=== PATIENT | male | born 1990 | race Two or more races ===

== ENCOUNTER 2022-01-15 22:57 | Emergency (ER) | payer MEDICAID ==
[~2022-01-15] VITALS: Ht 177.8 cm; Wt 74.8 kg
[2022-01-15 22:57] VITALS: BP 103/61
[2022-01-16 01:04] LABS: BUN/Creatinine Ratio 13.2; Bilirubin, Total 1.1 mg/dL (0.2-1.0); Calcium 8.8 mg/dL (8.5-10.1); Potassium 4.1 mmol/L (3.5-5.1); Total Protein 7.9 g/dL (6.4-8.2)
[2022-01-16 01:05] LABS: Albumin 4.4 g/dL (3.4-5.0)
[2022-01-16 01:13] LABS: Basophils # (auto) 0 10 ^3/uL (0-0.2); Eosinophils # (auto) 0 10 ^3/uL (0-0.8); Hematocrit 44.4 % (41.0-53.0); Hemoglobin 15.5 g/dL (13.5-17.5); Lymphocytes # (auto) 0.6 10 ^3/uL (0.4-5.4); Lymphocytes % (auto) 5.2 % (10.0-50.0); Mean Corpuscular Hemoglobin 30.3 pg (28.0-32.0); Mean Corpuscular Hgb Conc. 34.8 g/dL (32.0-36.0); Mean Corpuscular Volume 87.1 fL (80.0-100.0); Monocytes # (auto) 1.1 10 ^3/uL (0-1.3); Neutrophils # (auto) 10.3 10 ^3/uL (1.6-8.6); Neutrophils % (auto) 85.8 % (37.0-80.0); Red Cell Distribution Width 13.7 % (11.8-14.3)
== END 2022-01-16 06:10 | disposition left against medical advice (07) ==
LOC: ER 22:57
DX: R50.9 Fever, unspecified (principal); M79.10 Myalgia, unspecified site; R11.0 Nausea; R19.7 Diarrhea, unspecified; R10.31 Right lower quadrant pain; Z53.21 Procedure and treatment not carried out due to patient leaving prior to being seen by health care provider
CPT/HCPCS: 36415; 80053; 83690; 85025

== ENCOUNTER 2022-01-17 09:32 | Inpatient (IN) | payer MEDICAID ==
[~2022-01-17] VITALS: Ht 177.8 cm; Wt 79.2 kg
[2022-01-17 10:50] LABS: Urine Bacteria NONE SEEN /hpf (None Seen); Urine Blood 1+ /uL (Negative); Urine Hyaline Cast FEW /lpf (0 - 2); Urine Mucus FEW (None Seen); Urine Specific Gravity 1.018 (1.001-1.035); Urine WBC 30 /hpf (0 - 3)
[2022-01-17 12:20] LABS: Hematocrit 45.3 % (41.0-53.0); Hemoglobin 15.9 g/dL (13.5-17.5); Mean Corpuscular Hemoglobin 30.3 pg (28.0-32.0); Mean Corpuscular Hgb Conc. 35.2 g/dL (32.0-36.0); Mean Corpuscular Volume 86.1 fL (80.0-100.0); Red Blood Cells 5.27 10^6/uL (4.5-5.90); Red Cell Distribution Width 14.1 % (11.8-14.3); White Blood Cell 8.8 10^3/uL (4.4-10.8)
[2022-01-17 12:29] LABS: Basophils % (manual) 0 (0.0-2.0); Blast Cells 0; Monocytes % (manual) 0 (0-12); Myelocytes % 0; Promyelocytes % 0; Reactive Lymphocytes 0
[2022-01-17 12:33] LABS: Albumin 3.6 g/dL (3.4-5.0); Calcium 8.6 mg/dL (8.5-10.1); Potassium 4.6 mmol/L (3.5-5.1)
[2022-01-17 12:38] LABS: Bilirubin, Total 0.6 mg/dL (0.2-1.0); Total Protein 7.8 g/dL (6.4-8.2)
[2022-01-17 13:47] LABS: Band Neutrophils % (manual) 13; Eosinophils % (manual) 1 (0-7); Lymphocytes % (manual) 12 (10.0-50.0); Metamyelocytes % 6
[2022-01-17] MEDS ORDERED: metroNIDAZOLE 500MG/100ML 100 ML IV ONE (14:45)
[2022-01-17] MEDS ORDERED: SODIUM CHLORIDE 0.9% 1,000 ML IV ONE (14:45)
[2022-01-17] MEDS ORDERED: CIPROFLOXACIN 400MG/200ML 200 ML IV ONE (14:45)
[2022-01-17] MEDS ORDERED: HYDROcodone-ACET 5/325MG TAB PO PRN (21:15)
[2022-01-17] MEDS ORDERED: ACETAMINOPHEN 325 MG TAB PO PRN (21:15)
[2022-01-17] MEDS ORDERED: PANTOPRAZOLE 40 MG/10 ML VIAL INJ IV ONE (21:15)
[2022-01-17] MEDS ORDERED: ONDANSETRON HCL 4 MG/2 ML VIAL IV PRN (21:15)
[2022-01-17] MEDS ORDERED: TEMAZEPAM 15 MG CAP PO PRN (21:15)
[2022-01-17] MEDS: metroNIDAZOLE 500MG/100ML 100 ML IV SCH (22:00)
[2022-01-17] MEDS: SODIUM CHLORIDE 0.9% 1,000 ML IV SCH (22:51)
[2022-01-17 23:47] VITALS: BP 104/57
[2022-01-18 04:29] LABS: Basophils # (auto) 0 10 ^3/uL (0-0.2); Basophils % (auto) 0.3 % (0.0-2.0); Eosinophils # (auto) 0.1 10 ^3/uL (0-0.8); Eosinophils % (auto) 0.7 % (0.0-7.0); Hematocrit 38.2 % (41.0-53.0); Hemoglobin 13.5 g/dL (13.5-17.5); Lymphocytes # (auto) 1.2 10 ^3/uL (0.4-5.4); Lymphocytes % (auto) 12.9 % (10.0-50.0); Mean Corpuscular Hemoglobin 30.2 pg (28.0-32.0); Mean Corpuscular Hgb Conc. 35.3 g/dL (32.0-36.0); Mean Corpuscular Volume 85.6 fL (80.0-100.0); Monocytes # (auto) 1.3 10 ^3/uL (0-1.3); Monocytes % (auto) 13.8 % (0.0-12.0); Neutrophils # (auto) 6.9 10 ^3/uL (1.6-8.6); Neutrophils % (auto) 72.3 % (37.0-80.0); Nucleated Red Blood Cells % 0.1 %; Red Blood Cells 4.47 10^6/uL (4.5-5.90); Red Cell Distribution Width 14.1 % (11.8-14.3); White Blood Cell 9.5 10^3/uL (4.4-10.8)
[2022-01-18 04:35] LABS: Potassium 3.9 mmol/L (3.5-5.1)
[2022-01-18 04:39] LABS: Albumin 3.1 g/dL (3.4-5.0); BUN/Creatinine Ratio 16.3; Calcium 7.8 mg/dL (8.5-10.1)
[2022-01-18 04:41] LABS: Bilirubin, Total 0.4 mg/dL (0.2-1.0); Total Protein 6.3 g/dL (6.4-8.2)
[2022-01-18 05:00] VITALS: BP 102/60
[2022-01-18] MEDS: metroNIDAZOLE 500MG/100ML 100 ML IV SCH ×3 (05:14→21:45)
[2022-01-18] MEDS: SODIUM CHLORIDE 0.9% 1,000 ML IV SCH ×4 (06:48→22:48)
[2022-01-18 09:00] VITALS: BP 99/62
[2022-01-18] MEDS: cefTRIAXone 1GM/50ML D5W 50 ML IV SCH (09:12)
[2022-01-18] MEDS: PANTOPRAZOLE 40 MG/10 ML VIAL INJ IV SCH (09:12)
[2022-01-18] MEDS ORDERED: methylPREDNISolone SOD SUCC 125 MG/2 ML VL IV ONE (12:00)
[2022-01-18 13:00] VITALS: BP 104/57
[2022-01-18 17:00] VITALS: BP 104/59
[2022-01-18 22:01] VITALS: BP 96/50
[2022-01-19 05:00] VITALS: BP 90/50
[2022-01-19] MEDS ORDERED: SODIUM CHLORIDE 0.9% 500 ML IV ONE (05:45)
[2022-01-19] MEDS: metroNIDAZOLE 500MG/100ML 100 ML IV SCH ×3 (06:03→21:27)
[2022-01-19 07:55] LABS: BUN/Creatinine Ratio 26.9; Calcium 8.1 mg/dL (8.5-10.1); Potassium 4.3 mmol/L (3.5-5.1)
[2022-01-19 08:53] LABS: Basophils # (auto) 0.1 10 ^3/uL (0-0.2); Basophils % (auto) 1.2 % (0.0-2.0); Eosinophils # (auto) 0 10 ^3/uL (0-0.8); Hematocrit 33.5 % (41.0-53.0); Hemoglobin 11.8 g/dL (13.5-17.5); Lymphocytes # (auto) 0.9 10 ^3/uL (0.4-5.4); Lymphocytes % (auto) 9.7 % (10.0-50.0); Mean Corpuscular Hemoglobin 30.5 pg (28.0-32.0); Mean Corpuscular Hgb Conc. 35.4 g/dL (32.0-36.0); Mean Corpuscular Volume 86.1 fL (80.0-100.0); Monocytes # (auto) 0.7 10 ^3/uL (0-1.3); Monocytes % (auto) 7.4 % (0.0-12.0); Neutrophils # (auto) 7.4 10 ^3/uL (1.6-8.6); Neutrophils % (auto) 81.7 % (37.0-80.0); Nucleated Red Blood Cells % 0.1 %; Red Blood Cells 3.88 10^6/uL (4.5-5.90); White Blood Cell 9.1 10^3/uL (4.4-10.8)
[2022-01-19 09:00] VITALS: BP 94/46
[2022-01-19 09:17] LABS: INR 1.01 (0.9-1.15); Partial Thromboplastin Time 32.8 sec (23.6-33.0)
[2022-01-19] MEDS: cefTRIAXone 1GM/50ML D5W 50 ML IV SCH (10:10)
[2022-01-19] MEDS: PANTOPRAZOLE 40 MG/10 ML VIAL INJ IV SCH (10:10)
[2022-01-19] MEDS: methylPREDNISolone SOD SUCC 125 MG/2 ML VL IV SCH ×2 (10:10→21:27)
[2022-01-19] MEDS: SODIUM CHLORIDE 0.9% 1,000 ML IV SCH ×3 (10:10→22:58)
[2022-01-19] MEDS ORDERED: SODIUM CHLORIDE LOCK 10 ML ONE (13:04)
[2022-01-19] MEDS ORDERED: MIDAZOLAM HCL 5 MG/ML-1ML VIAL ONE (13:04)
[2022-01-19] MEDS ORDERED: fentaNYL CITRATE 100 MCG/2 ML VL ONE (13:05)
[2022-01-19] MEDS ORDERED: FLEET ENEMA(ADULT) 135 ML PR ONE (13:15)
[2022-01-19] MEDS: diphenhdrAMINE HCL 50 MG/1 ML VL ONE ×2 (13:48→13:51)
[2022-01-19 17:00] VITALS: BP 97/52
[2022-01-19 22:00] VITALS: BP 93/58
[2022-01-20 05:00] VITALS: BP 102/68
[2022-01-20] MEDS: SODIUM CHLORIDE 0.9% 1,000 ML IV SCH ×2 (05:34→11:15)
[2022-01-20] MEDS: metroNIDAZOLE 500MG/100ML 100 ML IV SCH (05:34)
[2022-01-20 06:16] LABS: Potassium 4.4 mmol/L (3.5-5.1)
[2022-01-20 06:23] LABS: BUN/Creatinine Ratio 26.7
[2022-01-20] MEDS: PANTOPRAZOLE 40 MG/10 ML VIAL INJ IV SCH (08:43)
[2022-01-20] MEDS: cefTRIAXone 1GM/50ML D5W 50 ML IV SCH (08:43)
[2022-01-20] MEDS: methylPREDNISolone SOD SUCC 125 MG/2 ML VL IV SCH (08:43)
[2022-01-20 09:00] VITALS: BP 93/50
[2022-01-20] MEDS ORDERED: METH4PAK PO (10:56)
[2022-01-20] MEDS ORDERED: METR500T PO (10:56)
[2022-01-20] MEDS ORDERED: CEPH-509 PO (10:56)
[2022-01-20] MEDS ORDERED: MESA0.37 PO (11:02)
[2022-01-20] MEDS ORDERED: PANT40TA2 PO (11:02)
== END 2022-01-20 13:44 | disposition home or self-care (01) | DRG 245 ==
LOC: ER 09:32 → OVERFLOW 21:02 → CENTRAL 23:29
PROVIDERS: ADMIT Nurse Practitioner; ATTEND Internal Medicine
PROC: 0DBN8ZX Excision of Sigmoid Colon, Via Natural or Artificial Opening Endoscopic, Diagnostic (ICD-10-PCS; principal; 2022-01-19 13:43)
DX: K51.90 Ulcerative colitis, unspecified, without complications (principal); N17.0 Acute kidney failure with tubular necrosis; E86.0 Dehydration; Z20.822 Contact with and (suspected) exposure to COVID-19; Z82.49 Family history of ischemic heart disease and other diseases of the circulatory system
CPT/HCPCS: 36415; 74176; 80048; 80053; 81001; 82270; 82550; 83605; 83690; 85007; 85025; 85027; 85610; 85730; 87045; 87427; 87493; 96361; 96365; 96375; C9113; G0378; J0696; J2250; J3490